=== PATIENT | female | born 1930 | race Asian ===

== ENCOUNTER 2017-08-10 16:47 | Outpatient (CLI) | payer MEDICARE, OTHER ==
[2017-08-10 17:03] LABS: BASOPHILS % (AUTO) 0.5 %; EOSINOPHILS # (AUTO) 0.1 10^3/uL (0.0-0.7); EOSINOPHILS % (AUTO) 1.5 %; HGB - HEMOGLOBIN 12.4 g/dL (12.0-16.0); LYMPHOCYTES # (AUTO) 1.2 10^3/uL (1.5-3.5); LYMPHOCYTES % (AUTO) 25.7 %; MEAN CORPUSCULAR HEMOGLOBIN 32.7 pg (27.0-31.0); MEAN CORPUSCULAR VOLUME 96.1 fL (81.0-99.0); MEAN PLATELET VOLUME 8.5 fL (7.9-10.8); MONOCYTES # (AUTO) 0.5 10^3/uL (0.0-1.0); MONOCYTES % (AUTO) 11.7 %; NEUTROPHILS # (AUTO) 2.7 10^3/uL (1.5-6.6); NEUTROPHILS % (AUTO) 60.6 %; PLT - PLATELET COUNT 156 10^3/uL (130-450); RED BLOOD COUNT 3.79 10^6/uL (4.20-5.40); RED CELL DISTRIBUTION WIDTH 13.9 % (12.0-15.0); WHITE BLOOD COUNT 4.5 x10^3/uL (4.8-10.8)
[2017-08-10 17:23] LABS: ALBUMIN 4.4 g/dL (3.2-5.5); ALBUMIN/GLOBULIN RATIO 1.8 (1.0-2.2); BILIRUBIN,TOTAL 0.8 mg/dL (0.2-1.0); CALCIUM 9.5 mg/dL (8.5-10.3); CREATININE 0.4 mg/dL (0.4-1.0); TOTAL PROTEIN 6.9 g/dL (6.7-8.2)
== END 2017-08-10 16:48 | disposition home or self-care (01) ==
LOC: LAB 16:47
PROVIDERS: ATTEND Internal Medicine
DX: Z79.899 Other long term (current) drug therapy (principal); E03.9 Hypothyroidism, unspecified; R60.9 Edema, unspecified; I10 Essential (primary) hypertension; R05 Cough
CPT/HCPCS: 36415; 80053; 83880; 84443; 85025

== ENCOUNTER 2017-12-02 11:42 | Outpatient (CLI) | payer MEDICARE, OTHER ==
--- NOTE | 2017-12-02 13:38 | CT Report ---
Procedure Date: 12/02/2017 Accession Number: [id number] / [id number] Procedure: CT - Cervical Spine W/O CPT Code: FULL RESULT: EXAM: Head W/O, Cervical Spine W/O DATE: 12/02/2017 1:01 PM CLINICAL HISTORY: NECK PAIN, BLURRED VISION, BALANCE PROBLEM AFTER F COMPARISON: None. TECHNIQUE: Multiaxial CT images were obtained from the thoracic inlet to the vertex. IV contrast: None. Reformats: Coronal and sagittal as well as axial for the spine. Coronal and axial for the head. In accordance with CT protocol optimization, one or more of the following dose reduction techniques were utilized for this exam: automated exposure control, adjustment of mA and/or KV based on patient size, or use of iterative reconstructive technique. FINDINGS: CT HEAD: Parenchyma: No intraparenchymal hemorrhage. No evidence of mass, midline shift, or CT findings of infarction. Melendrez-white differentiation is distinct. Extraaxial Spaces: Normal for age. No subdural or epidural collections identified. Ventricles: Normal in size and position. Sinuses: Imaged paranasal sinuses, orbits, and mastoids show no significant abnormality. Bones: No evidence of fracture or calvarial defect. CT spine: The atlantoaxial relationship is preserved. There is no traumatic fracture or listhesis. No spinal epidural hematoma is detected. Soft tissues are within normal limits. Lordosis/kyphosis: There is straightening of the normal upper cervical spine due to multilevel degenerative disc disease with curvature and extension primarily at C6-7. Alignment: Mild retrolisthesis of C5 on C6 with associated degenerative changes including loss of disc space height and disc osteophyte complex formation encroaching upon the spinal canal. Spinal canal: Mild degenerative central canal stenosis most pronounced at C5 and C6. IMPRESSION: No acute intracranial abnormality. No evidence of trauma to the cervical spine. [facility]
== END 2017-12-02 11:43 | disposition home or self-care (01) ==
LOC: DI 11:42
PROVIDERS: ATTEND Internal Medicine
DX: M54.2 Cervicalgia (principal); H53.8 Other visual disturbances; H53.30 Unspecified disorder of binocular vision
CPT/HCPCS: 70450; 72125

== ENCOUNTER 2018-03-18 09:25 | Outpatient (CLI) | payer MEDICARE, OTHER ==
--- NOTE | 2018-03-19 09:24 | Mammography Report ---
Reason: SCREENING MAMMO Procedure Date: 03/18/2018 Accession Number: [id number] / [id number] Procedure: MGN - Screening Mammo Dig Bilat CPT Code: FULL RESULT: EXAM: Screening Mammo Dig Bilat DATE: 03/18/2018 9:59 AM CLINICAL HISTORY: 87-year-old female with personal history of left breast cancer status post lumpectomy. TECHNIQUE: Bilateral CC, laterally exaggerated CC, MLO views were obtained. COMPARISON: 03/17/2017, 03/11/2016, 02/26/2015, 02/17/2014. FINDINGS: The breasts demonstrate extremely dense parenchyma bilaterally, limiting the sensitivity of mammography. Posttreatment changes are seen in the left breast. Typically benign vascular calcifications are seen bilaterally. No suspicious masses, clustered microcalcifications, or regions of architectural distortion are identified. IMPRESSION: Benign findings RECOMMENDATION: Routine annual screening unless otherwise clinically indicated. BIRADS CATEGORY 2: Benign findings STANDARD QUALIFYING STATEMENTS: 1. This examination was reviewed with the aid of Computer-Aided Detection (CAD). 2. A negative or benign imaging report should not delay biopsy if clinically suspicious findings are present. Consider surgical consultation if warrented. More than 5% of cancers are not identified by imaging. 3. Dense breasts may obscure an underlying neoplasm. 4. This examination was reviewed without the aid of 3D breast imaging (tomosynthesis).
== END 2018-03-18 09:26 | disposition home or self-care (01) ==
LOC: DI.N 09:25
DX: Z12.31 Encounter for screening mammogram for malignant neoplasm of breast (principal); Z08 Encounter for follow-up examination after completed treatment for malignant neoplasm; Z85.3 Personal history of malignant neoplasm of breast
CPT/HCPCS: 77067

== ENCOUNTER 2018-06-16 11:26 | Outpatient (CLI) | payer MEDICARE, OTHER ==
--- NOTE | 2018-06-16 12:22 | CT Report ---
Reason: RECENT L SIDED WEAKNESS Procedure Date: 06/16/2018 Accession Number: [id number] / [id number] Procedure: CT - Head W/O CPT Code: FULL RESULT: EXAM: CT HEAD EXAM DATE: 06/16/2018 11:50 AM. CLINICAL HISTORY: Recent left-sided weakness. COMPARISON: HEAD W/O 12/02/2017 12:52 PM. TECHNIQUE: Multiaxial CT images were obtained from the foramen magnum to the vertex. Reformats: Sagittal and coronal. IV contrast: None. In accordance with CT protocol optimization, one or more of the following dose reduction techniques were utilized for this exam: automated exposure control, adjustment of mA and/or KV based on patient size, or use of iterative reconstructive technique. FINDINGS: Parenchyma: No intraparenchymal hemorrhage. No evidence of mass, midline shift. Melendrez-white differentiation is distinct. Extraaxial Spaces: Normal for age. No subdural or epidural collections identified. Ventricles: Normal in size and position. Sinuses and Orbits: Imaged paranasal sinuses, orbits, and mastoids show no significant abnormality. Bones: No evidence of fracture or calvarial defect. Other: None. IMPRESSION: No acute intracranial abnormality. [facility] The call report notification system was initiated by Dr. Jack Sawant at 12:20 PM hrs on 06/16/2018. ADDENDUM: 06/16/18 13:02 The above findings of no acute abnormality were discussed with Dr. Anushka Dr by Dr. Jack Sawant at 01:02 PM hrs on 06/16/2018.
== END 2018-06-16 11:27 | disposition home or self-care (01) ==
LOC: DI 11:26
PROVIDERS: ATTEND Internal Medicine
DX: R53.1 Weakness (principal)
CPT/HCPCS: 70450

== ENCOUNTER 2018-07-12 13:49 | Outpatient (CLI) | payer MEDICARE, OTHER ==
--- NOTE | 2018-07-12 17:07 | MRI Report ---
Reason: TIA,HTN Procedure Date: 07/12/2018 Accession Number: [id number] / [id number] Procedure: MRI - Brain W/O CPT Code: FULL RESULT: EXAM: MRI BRAIN WITHOUT CONTRAST EXAM DATE: 07/12/2018 03:59 PM. CLINICAL HISTORY: Hypertension. Confusion. TIA. COMPARISON: None. TECHNIQUE: Multiplanar, multisequence T1-weighted and fluid-sensitive MR sequences of the brain were performed. Sequences optimized for routine evaluation. Other: None. IV Contrast: None. FINDINGS: Moderate diffuse brain atrophy. Mild ventriculomegaly, probably from atrophy. No midline shift or abnormal subdural fluid collection. There is an ovoid circumscribed T2 hyperintensity with diffusion hyperintensity measuring about 5 x 7 mm in the deep white matter of the high right frontoparietal brain. No restricted diffusion demonstrated on the ADC map. No hemorrhage. This may represent a subacute small vessel ischemic infarct with diffusion hyperintensity from T2 shine through. No other evidence for acute or recent ischemic infarct. There are numerous scattered punctate foci of predominantly peripheral abnormal gradient echo hypointensity in both cerebral hemispheres that are nonspecific but suggestive of chronic microhemorrhages, potentially associated with amyloid angiopathy. Similar punctate GRE hypointensity of the right cerebellar tonsil inferiorly. There is also an asymmetric nodular focus of GRE hypointensity associated with the choroid plexus in the temporal horn of the left lateral ventricle, possibly calcification though chronic blood products might have a similar appearance. This measures up to about 4 mm. Moderately prominent chronic-appearing cerebral white matter disease is also present consistent with aging and chronic microangiopathy. Small dependent fluid collection in the right maxillary sinus. Minimal bilateral ethmoid mucosal thickening. Previous lens extractions. The major arterial skull base flow voids are present. No evidence for focal pathologic appearing marrow signal changes in the skull or clivus. IMPRESSION: 1. Probable small subacute white matter infarct in the region of the right centrum semiovale. 2. Moderately prominent chronic cerebral white matter T2 hyperintense signal changes likely from aging and chronic microangiopathy. 3. Numerous scattered peripheral GRE hypointensities are present in the cerebral hemispheres, the appearance suggests numerous chronic microhemorrhages as might be seen with amyloid angiopathy. 4. Mild paranasal sinus disease. 5. Moderate generalized brain volume loss consistent with atrophy that likely accounts also for ventriculomegaly but no evidence for mass effect or midline shift. [facility]
--- NOTE | 2018-07-13 12:18 | Ultrasound Report ---
Reason: TIA,HTN Procedure Date: 07/12/2018 Accession Number: [id number] / [id number] Procedure: US - Carotid Doppler Complete CPT Code: FULL RESULT: EXAM: BILATERAL CAROTID AND VERTEBRAL ARTERY DUPLEX DOPPLER ULTRASOUND: EXAM DATE: 07/12/2018 05:12 PM CLINICAL HISTORY: TIA, hypertension. COMPARISON: None. TECHNIQUE: Grayscale imaging, color Doppler, and duplex spectral Doppler were used to evaluate the carotid and vertebral arteries bilaterally. Static images were obtained. FINDINGS: Mild, calcific plaque, not felt to be significant, is identified in the right or left common or internal carotid arteries. Normal antegrade flow is present in bilateral vertebral arteries. VELOCITIES: Right CCA mid: PSV 59.1 cm/sec CCA dist: PSV 63.8 cm/sec ICA prox: PSV 64.8 cm/sec, EDV 11.8 cm/sec ICA mid: PSV 74.0 cm/sec, EDV 11.1 cm/sec ICA dist: PSV 57.6 cm/sec, EDV 8.5 cm/sec ECA: PSV 89.1 cm/sec Vert: PSV 49.6 cm/sec ICA/CCA: 1.15 Left CCA mid: PSV 75.4 cm/sec CCA dist: PSV 84.1 cm/sec ICA prox: PSV 71.6 cm/sec, EDV 13.1 cm/sec ICA mid: PSV 83.0 cm/sec, EDV 22.7 cm/sec ICA dist: PSV 64.2 cm/sec, EDV 19.1 cm/sec ECA: PSV 61.1 cm/sec Vert: PSV 52.7 cm/sec ICA/CCA: 0.98 ICA diameter stenosis: Right: <50% by velocity and <70% by NASCET criteria. Left: <50% by velocity and <70% by NASCET criteria. IMPRESSION: 1. No significant bilateral carotid artery plaquing. 2. In the right carotid artery there are no elevated carotid artery velocities to suggest hemodynamically significant stenosis. 3. In the left carotid artery there are no elevated carotid artery velocities to suggest hemodynamically significant stenosis. 4. Normal antegrade flow is present in bilateral vertebral arteries. General Recommendations: Stenosis =50% ICA - Follow-up ultrasound 6-12 months Stenosis <50% ICA - High Risk Patient with plaque - Follow-up ultrasound 1-2 years Normal Study but High Risk Patient - Follow-up ultrasound 3-5 years Management recommendations and diagnostic criteria are based on current IAC endorsed standards in Carotid Artery Stenosis: Grayscale and Doppler Ultrasound Diagnosis. Validated velocity measurements with angiographic measurements and velocity criteria are extrapolated from diameter data as defined by the Society of Radiologists in Ultrasound Consensus Conference Radiology 2003; 229;340-346. RAD[facility]
== END 2018-07-12 13:50 | disposition home or self-care (01) ==
LOC: DI 13:49
PROVIDERS: ATTEND Internal Medicine
DX: G45.9 Transient cerebral ischemic attack, unspecified (principal); I10 Essential (primary) hypertension; R90.82 White matter disease, unspecified; J32.9 Chronic sinusitis, unspecified
CPT/HCPCS: 70551; 93306; 93880